=== PATIENT | female | born 1975 | race African-American/Black ===

== ENCOUNTER 2019-03-15 17:10 | Emergency (ER) | payer MEDICAID ==
[2019-03-15] MEDS ORDERED: Ketorolac 30mg Inj IV ONE (17:30)
--- NOTE | 2019-03-15 17:37 | Emergency Room Report ---
History of Present Illness General Chief Complaint: Abdominal pain Source: Patient Present Illness HPI Disclaimer: Please note that this report is being documented using [employer] technology. This can lead to erroneous entry secondary to incorrect interpretation by the dictating instrument. HPI: 43 year old female with no reported medical history presents complaining of sudden onset right-sided flank and abdominal pain. Symptoms began approximately 1.5 hours prior to presentation. Was at rest, not eating, no trauma reported. She notes a sharp pain in the right flank that radiates and wraps around the torso into the right groin. She has some tenderness in the suprapubic region as well as the left groin though not as severe as on the right side. No history of kidney stones, cysts, ovarian cyst, ovarian nodules or fibroids. She denies dysuria, hematuria, vaginal discharge or vaginal bleeding. LMP 1 month ago. Denies upper abdominal pain, GERD-like symptoms, nausea, vomiting. Denies chest pain, shortness of breath. Otherwise has been in her usual state of health. Has not had prior instances of similar abdominal pain or flank pain. PMH: Denies PSH: Denies Allergies: None listed Social Hx: Denies drug or alcohol abuse Allergies: Coded Allergies: No Known Allergies (Unverified , 03/15/19) Review of Systems All Other Systems: negative except mentioned in HPI Physical Exam Vital Signs Date Time Temp Pulse Resp B/P (MAP) Pulse Ox O2 Delivery O2 Flow Rate FiO2 03/15/19 18:44 98.7 16 111/74 98 Room Air 03/15/19 19:02 79 General: Awake and alert, appears uncomfortable HEENT: NC/AT. EOMI. Cardiovascular: RRR. S1 and S2 normal. No murmur appreciated Resp: Normal work of breathing. No cough, wheezing or crackles appreciated Abdomen: Abdomen is soft, nondistended. Tenderness in the right lower quadrant with rebound. Moderate suprapubic tenderness, mild left lower quadrant tenderness. Negative Rovsing's. Skin: Intact. No abrasions, laceration or rash over the exposed skin MSK: Normal tone and bulk. Moving all extremities. No obvious deformity. Neuro: Awake and alert. Mentating appropriately. Back/Spine: There is right-sided CVA tenderness, negative on left Medical Decision Making Diagnostic Impression: Primary Impression: Infection due to trichomonas ER Course Is a 43-year-old female presenting with evaluation of acute onset abdominal pain with right-sided flank tenderness proximal he 1.5 hours prior to arrival. His concern at this time is for kidney stone and less concern for appendicitis though this is possible as well as pyelonephritis, UTI. Will treat with Toradol , IV fluids, obtain labs and sent for a CT scan of the abdomen. Laboratory Tests Test 03/15/19 17:38 03/15/19 17:58 Urine Color Pale yellow Urine Appearance Cloudy Urine pH 8 (4.5-8.0) Urine Specific [place] 1.015 (1.005-1.035) Urine Protein Negative (NEGATIVE) Urine Glucose (UA) Negative (NEGATIVE) Urine Ketones Negative (NEGATIVE) Urine Blood 1+ (NEGATIVE) H Urine Nitrite Negative (NEGATIVE) Urine Bilirubin Negative (NEGATIVE) Urine Urobilinogen Normal MG/DL (0.0-1.0) Urine Leukocyte Esterase 3+ (NEGATIVE) H Urine RBC 2-4 /HPF (0 - 2) H Urine WBC 5-10 /HPF (0 - 2) H Urine Squamous Epithelial Cells Many /LPF (NONE/OCC) H Urine Bacteria Moderate /HPF (NONE) H Urine Trichomonas Moderate /HPF (NONE) H Urine HCG, Qualitative Negative (NEGATIVE) White Blood Count 8.0 K/UL (4.8-10.8) Red Blood Count 4.30 M/UL (4.20-5.40) Hemoglobin 13.8 G/DL (12.0-16.0) Hematocrit 41.2 % (37.0-47.0) Mean Corpuscular Volume 96 FL (80-99) Mean Corpuscular Hemoglobin 32.1 PG (27.0-31.0) H Mean Corpuscular Hemoglobin Concent 33.4 G/DL (32.0-36.0) Red Cell Distribution Width 11.5 % (11.6-14.8) L Platelet Count 328 K/UL (150-450) Mean Platelet Volume 5.8 FL (6.5-10.1) L Neutrophils (%) (Auto) 70.4 % (45.0-75.0) Lymphocytes (%) (Auto) 20.4 % (20.0-45.0) Monocytes (%) (Auto) 6.2 % (1.0-10.0) Eosinophils (%) (Auto) 1.9 % (0.0-3.0) Basophils (%) (Auto) 1.1 % (0.0-2.0) Sodium Level 139 MMOL/L (136-145) Potassium Level 3.8 MMOL/L (3.5-5.1) Chloride Level 103 MMOL/L (98-107) Carbon Dioxide Level 27 MMOL/L (21-32) Anion Gap 9 mmol/L (5-15) Blood Urea Nitrogen 16 mg/dL (7-18) Creatinine 0.8 MG/DL (0.55-1.30) Estimate Glomerular Filtration Rate > 60 mL/min (>60) Glucose Level 120 MG/DL (74-106) H Calcium Level 8.8 MG/DL (8.5-10.1) Total Bilirubin 0.4 MG/DL (0.2-1.0) Aspartate Amino Transferase (AST) 30 U/L (15-37) Alanine Aminotransferase (ALT) 38 U/L (12-78) Alkaline Phosphatase 67 U/L (46-116) Total Protein 8.0 G/DL (6.4-8.2) Albumin 3.9 G/DL (3.4-5.0) Globulin 4.1 g/dL Albumin/Globulin Ratio 1.0 (1.0-2.7) Lipase 95 U/L (73-393) Reevaluation Impression Pain is completely resolved after receiving Toradol and IV fluids. CT imaging did show a retained stone in the right kidney but no stone in the ureter.Labs show normal white count, no shift, unremarkable electrolytes and liver function and lipase. Urinalysis shows 3+ leukocyte esterase, 5-10 white cells, RBCs, moderate bacteria and moderate trichomonas. The patient will be treated with metronidazole but will also treat with ceftriaxone azithromycin she states she has had unprotected sexual intercourse. I told her that she her partners need to be evaluated and treated for trichomonas as well and possible other STI testing. She will be discharged to follow-up with her PMD. She understands and agrees with this treatment plan was discharged home. Disposition: HOME, SELF-CARE Condition: Improved Brett Estes MD Mar 15, 2019 17:37
--- NOTE | 2019-03-15 17:45 | NUR ---
ED Nurse Note: patient went to CT scan
--- NOTE | 2019-03-15 17:52 | NUR ---
ED Nurse Note: Patient [place] in by ambulance [facility] [id number] [place] [address] [place], patient c/o lower stomach pain, right in the lower part of her belly button, 1 hour prior to arrival. patient vomited x1 patient is alert awake x4 ambulatory, breathing unlabored and even, speaking in full sentences.
[2019-03-15] MEDS ORDERED: ATORVASTATIN CA10 MG ORAL (18:01)
[2019-03-15] MEDS ORDERED: AMLODIPINE BESYL5 MG ORAL (18:01)
[2019-03-15] MEDS ORDERED: LISINOPRIL10 MG ORAL (18:01)
[2019-03-15 18:07] LABS: APPEARANCE,URINE CLOUDY; BILIRUBIN, URINE NEGATIVE (NEGATIVE); COLOR,URINE PALE YELLOW; GLUCOSE, URINE (UA) NEGATIVE (NEGATIVE); KETONES,URINE NEGATIVE (NEGATIVE); LEUKOCYTE ESTERASE ,URINE 3+ (NEGATIVE); NITRITE,URINE NEGATIVE (NEGATIVE); PH,URINE 8 (4.5-8.0); PROTEIN,URINE NEGATIVE (NEGATIVE); UROBILINOGEN,URINE NORMAL MG/DL (0.0-1.0)
[2019-03-15] MEDS ORDERED: Omnipaque-300 100ml vial INJ PRN (18:15)
--- NOTE | 2019-03-15 18:20 | Diagnostic Imaging Report ---
Indication: Or abdominal pain. Vomiting. Technique: Spiral acquisitions obtained through the abdomen and pelvis. No oral contrast utilized, per emergency room physician request No IV contrast utilized, per referring physician request.. Multiplanar reconstructions were generated. Total dose length product 1264 mGycm. CTDIvol(s) 22 mGy. Dose reduction achieved using automated exposure control Comparison: None Findings: Lack of and enteric contrast limits assessment of the GI tract. The appendix is normal. There is no evidence of diverticulosis or diverticulitis. No small bowel distention. There is a small amount of free fluid over the dome of the right hepatic lobe. There is a small sliding-type hiatal hernia noted. The remainder of the stomach is unremarkable. The duodenum is unremarkable. Lack of IV contrast limits assessment of the solid organs. The liver, gallbladder, bile ducts, pancreas, spleen, adrenals, left kidney are unremarkable. Tiny punctate calyceal calcifications are seen in the right kidney. No hydronephrosis, renal or ureteral calculi, or hydroureter. The uterus and ovaries are unremarkable, although assessment of the latter is limited as they are obscured by the presence of surrounding nonopacified small bowel. The included lung bases are clear. The bones demonstrate lower lumbar degenerative spondylosis changes. Impression: Limited assessment of the GI tract, due to lack of enteric contrast demonstration Trace free intraperitoneal fluid over the dome of the right hepatic lobe. Etiology uncertain No other gross acute abnormality Nonobstructive punctate right intrarenal calyceal calculi Small sliding-type hiatal hernia, degenerative spondylosis incidentally noted The CT scanner at [facility] is accredited by the [employer] and the scans are performed using protocols designed to limit radiation exposure to as low as reasonably achievable to attain images of sufficient resolution adequate for diagnostic evaluation.
[2019-03-15 18:25] LABS: BASOPHILS % (AUTO) 1.1 % (0.0-2.0); EOSINOPHILS % (AUTO) 1.9 % (0.0-3.0); HEMATOCRIT 41.2 % (37.0-47.0); HEMOGLOBIN 13.8 G/DL (12.0-16.0); LYMPHOCYTES % (AUTO) 20.4 % (20.0-45.0); MEAN CORPUSCULAR VOLUME 96 FL (80-99); MONOCYTES % (AUTO) 6.2 % (1.0-10.0); NEUTROPHILS % (AUTO) 70.4 % (45.0-75.0); PLATELET COUNT 328 K/UL (150-450); RED CELL DISTRIBUTION WIDTH 11.5 % (11.6-14.8)
[2019-03-15 18:44] VITALS: BP 111/74
[2019-03-15 18:51] LABS: ANION GAP 9 mmol/L (5-15); BLOOD UREA NITROGEN 16 mg/dL (7-18); CALCIUM 8.8 MG/DL (8.5-10.1); CARBON DIOXIDE 27 MMOL/L (21-32); CHLORIDE 103 MMOL/L (98-107); CREATININE 0.8 MG/DL (0.55-1.30); POTASSIUM 3.8 MMOL/L (3.5-5.1); SODIUM 139 MMOL/L (136-145)
[2019-03-15 18:55] LABS: ALANINE AMINOTRANSFERASE 38 U/L (12-78); ALBUMIN 3.9 G/DL (3.4-5.0); ALKALINE PHOSPHATASE 67 U/L (46-116); ASPARTATE AMINO TRANSFERASE 30 U/L (15-37); BILIRUBIN,TOTAL 0.4 MG/DL (0.2-1.0)
--- NOTE | 2019-03-15 19:04 | NUR ---
HAND-OFF: Report given to Paul PATE.
--- NOTE | 2019-03-15 19:05 | NUR ---
ED Nurse Note: Received report from Tiera PATE. Patient alert and oriented, verbally responsive. No SOB. VSS.
[2019-03-15 19:10] VITALS: BP 115/70
[2019-03-15] MEDS ORDERED: Lidocaine 1% MPF 10mg/ml 5ml INJ ONE (19:30)
[2019-03-15] MEDS ORDERED: metroNIDAZOLE 500mg tab ORAL ONE (19:30)
[2019-03-15] MEDS ORDERED: Azithromycin 250mg tab ORAL ONE (19:30)
[2019-03-15 19:45] VITALS: BP_SYST 113; BP_SYST 115; BP_DIAS 70; BP_DIAS 77
--- NOTE | 2019-03-15 19:45 | NUR ---
ED Nurse Note: Pt cleared by ERMD for discharge. DC instructions was given and explained to pt and verbalized understanding of teachings. All medical deviecs such as ID band and Iv line removed. Pt is AAO x4, ambulatory and left with all personal belongings.
== END 2019-03-15 19:45 | disposition home or self-care (01) ==
LOC: EDBD 17:10 → EMR 18:00
DX: A59.9 Trichomoniasis, unspecified (principal)
CPT/HCPCS: 36415; 74176; 80053; 81003; 81025; 83690; 85025; 87086; 96361; 96372; 96374; 96375; J0696; J1885; J2405; Q0144; Z7502; 99284